=== PATIENT | male | born 2000 | race Caucasian/White ===

== ENCOUNTER → 2022-07-21 | Outpatient (CLI) | payer OTHER | LOC: M RAD 11:47 | PROVIDERS: ATTEND Physician Assistant Medical | DX: M79.672 Pain in left foot (principal); S92.355A Nondisplaced fracture of fifth metatarsal bone, left foot, initial encounter for closed fracture; X58.XXXA Exposure to other specified factors, initial encounter; Y92.9 Unspecified place or not applicable; Y93.9 Activity, unspecified; Y99.9 Unspecified external cause status ==